=== PATIENT | female | born 2000 | race Caucasian/White ===

== ENCOUNTER 2023-07-15 19:37 | Emergency (ER) | payer OTHER ==
[~2023-07-15] VITALS: Ht 160 cm; Wt 73.9 kg
[2023-07-15 20:33] VITALS: BP 115/69; PULSE 91; RESP 20; TEMP 98; O2SAT 98
[2023-07-15] MEDS ORDERED: LIDOCAINE MPF 1% 10 MG/ML VIAL INJ ONE (22:35)
[2023-07-15] MEDS ORDERED: IBUP-2213 PO (22:54)
== END 2023-07-15 23:02 | disposition home or self-care (01) ==
LOC: MED 19:37
DX: S61.304A Unspecified open wound of right ring finger with damage to nail, initial encounter (principal); X58.XXXA Exposure to other specified factors, initial encounter; Y93.89 Activity, other specified; Y92.89 Other specified places as the place of occurrence of the external cause; Y99.8 Other external cause status
CPT/HCPCS: 11730; 99284; J2001